=== PATIENT | male | born 1965 | race American Indian/Alaskan Native ===

== ENCOUNTER 2017-02-08 18:56 | Emergency (ER) | payer BC, OTHER ==
[2017-02-08 19:47] VITALS: BP 120/74
[2017-02-08] MEDS ORDERED: PEPCID PO ONE (20:06)
--- NOTE | 2017-02-08 20:06 | Emergency Department Report ---
Chief Complaint: Nausea/Vomiting/Diarrhea Stated Complaint: VOMITTING/DIZZINESS/SEVERAL MONTHS Time Seen by Provider: 02/08/17 20:02 - HPI History of Present Illness: Patient is a 51-year-old male who presents to ED complaining of she requested refills of the past 8 months. Patient also has a history of heart attack 2 years ago on lovastatin and another medication which he cannot recall. Patient states he's run out of those medications and would like a refill on those. As he has run out of insurance and be able to get insurance for couple weeks. Patient states he has periodic episodes of vomiting right after eating. Patient states he state times a while ago but had septic and Tums because he had a kidney stone. Patient states he has gotten the medication here before should be in his records Patient denies fevers/chills/nausea/chest pain/shortness of breath/pain or any other problems. - ROS Review of Systems: As noted in HPI - Exam Vital Signs: Vital Signs 02/08/17 19:42 Temperature 97.5 F L Pulse Rate 79 Respiratory 20 Rate Blood Pressure 120/74 O2 Sat by Pulse 97 Oximetry Physical Exam: GENERAL: Alert and oriented x3, no apparent distress, Normal Gait, atraumatic. HEAD: Head is normocephalic and a-traumatic. NECK: Supple. Non edematous, No carotid bruits. No lymphadenopathy or thyromegaly. LUNGS: Symetrical with respiration, No wheezing, no rales or crackles, CTAB. HEART: S1, S2 present, regular rate and rhythm without murmur, no rubs, no gallops. MSE screening note: Focused history and physical exam performed. Due to findings the following was ordered: ED Medical Decision Making - Medical Decision Making Patient to be seen by fast track provider for medication refill. ED Disposition for MSE Condition: Stable
--- NOTE | 2017-02-08 22:41 | Emergency Department Report ---
HPI - General Chief Complaint: Nausea/Vomiting/Diarrhea Time Seen by Provider: 02/08/17 20:02 - HPI HPI: 51-year-old male comes in for right out of his meds. Patient reports that he has a history of emesis for about 8 months. He reports he has a history of VT in the past and has been taking BC powders instead of his Plavix. He reports he's been taken at because he has no insurance to pay for his Plavix. He reports he needs refills on Plavix , Crestor and Pepcid. He does report he seems to worry a lot and thinks he has anxiety. Based on his current medication list it does appear that he's been on Xanax 2 mg at night. Discussed with patient that this is a medication that will need to be prescribed by primary care provider patient understands. ED Past Medical Hx - Past Medical History Previous Medical History?: Yes Hx Hypertension: No Hx Heart Attack/AMI: Yes Hx Congestive Heart Failure: No Hx Diabetes: No Hx Deep Vein Thrombosis: No Hx Pulmonary Embolism: No Hx Liver Disease: No Hx Renal Disease: Yes (kidney stones) Hx Sickle Cell Disease: No Hx Arthritis: No Hx Seizures: No Hx Kidney Stones: No Hx Asthma: Yes (childhood) Hx COPD: No Hx Tuberculosis: No Hx Dementia: No Hx HIV: No Additional medical history: high cholesterol - Surgical History Past Surgical History?: No Hx Coronary Stent: No Hx Pacemaker: No Hx Internal Defibrillator: No - Social History Smoking Status: Current Every Day Smoker Substance Use Type: None - Medications Home Medications: Home Medications Medication Instructions Recorded Confirmed Last Taken Type ALPRAZolam [Xanax TAB] 2 mg PO HS 08/08/14 01/17/16 10/27/14 History 2mg Aspirin [Aspirin BABY CHEW TAB] 81 mg PO QDAY #30 tab.chew 10/30/14 01/17/16 Unknown Rx Nicotine [Habitrol] 7 mg TD QDAY #14 patch 10/30/14 Unknown Rx Sulfamethoxazole/Trimethoprim 1 each PO BID #10 tablet 06/02/15 01/17/16 Unknown Rx [Bactrim DS TAB] ALPRAZolam [Xanax TAB] 2 mg PO HS #12 tablet 11/30/15 Unknown Rx Clindamycin [Clindamycin CAP] 300 mg PO Q6H #40 capsule 03/08/16 Unknown Rx HYDROcodone/APAP 5-325 [[place] 1 each PO Q6HR PRN #20 tablet 01/18/16 Unknown Rx 5/325] Aspirin EC [Aspirin Enteric Coated 81 mg PO QDAY #30 tablet. 02/08/17 Unknown Rx TAB] Clopidogrel [Plavix] 75 mg PO QDAY #30 tablet 02/08/17 Unknown Rx Famotidine [Pepcid] 20 mg PO BID #60 tablet 02/08/17 Unknown Rx Promethazine [Phenergan TAB] 25 mg PO Q6HR PRN #20 tab 02/08/17 Unknown Rx Rosuvastatin (Nf) [Crestor] 20 mg PO QHS #30 tablet 02/08/17 Unknown Rx ED Review of Systems ROS: Stated complaint: VOMITTING/DIZZINESS/SEVERAL MONTHS Other details as noted in HPI Physical Exam - Physical Exam Vital Signs: Vital Signs 02/08/17 19:42 Temperature 97.5 F L Pulse Rate 79 Respiratory 20 Rate Blood Pressure 120/74 O2 Sat by Pulse 97 Oximetry Physical Exam: GENERAL: Alert and oriented x3, no apparent distress, Normal Gait, atraumatic. HEAD: Head is normocephalic and a-traumatic. EYES: Extra ocular muscles are intact. Pupils are equal, round, and reactive to light and accommodation. MOUTH:Mouth is well hydrated and without lesions. Tonsils nonerythematous or swollen, Uvula midline, Tongue not elevated. Mucous membranes are moist. Posterior pharynx clear, no exudate or lesions. Patent airways. NECK: Supple. Non edematous, No carotid bruits. No lymphadenopathy or thyromegaly. LUNGS: Symetrical with respiration, No wheezing, no rales or crackles, CTAB. HEART: S1, S2 present, regular rate and rhythm without murmur, no rubs, no gallops. ABDOMEN: No organomegaly was noted,Positive bowel sounds, soft, and non- distended. . Nontender to palpation on all Quadrants, NO CVA tenderness. EXTREMITIES/MUSCULOSKELETAL: No cyanosis, clubbing, rash, lesions or edema. Full ROM bilaterally. UE/LE Pulses 2+ bilaterally. LE and UE 5+ strength bilaterally NEUROLOGIC: No focal Deficit, Cranial nerves II through XII are grossly intact. No loss of sensation, No facial droop, PSYCHIATRIC: Mood is congruent with affect, denies suicidal or homicidal ideations. SKIN: Warm and dry, No lesions, No ulceration or induration present ED Course Vital Signs 02/08/17 19:42 Temperature 97.5 F L Pulse Rate 79 Respiratory 20 Rate Blood Pressure 120/74 O2 Sat by Pulse 97 Oximetry ED Medical Decision Making - Medical Decision Making Patient's been evaluated by this provider in fast track. Treatment based on history. Patient has normal vital signs of a heart rate of 79 blood pressure 120/74 and saturations of 97. Discussed the patient that we will refill his medications for him and refer him to a primary care provider. As well as refer him to a GI specialist for his ongoing emesis and nausea since then gone on for 8 months. Patient verbalized understanding. Critical care attestation.: If time is entered above; I have spent that time in minutes in the direct care of this critically ill patient, excluding procedure time. ED Disposition Clinical Impression: Gastroenteritis Nausea & vomiting Qualifiers: Vomiting type: unspecified Disposition: DISCHARGED TO HOME OR SELFCARE Is pt being admited?: No Does the pt Need Aspirin: No Condition: Stable Instructions: Gastroenteritis (ED) Prescriptions: Rosuvastatin (Nf) [Crestor] 20 mg PO QHS #30 tablet Aspirin EC [Aspirin Enteric Coated TAB] 81 mg PO QDAY #30 tablet. Clopidogrel [Plavix] 75 mg PO QDAY #30 tablet Famotidine [Pepcid] 20 mg PO BID #60 tablet Promethazine [Phenergan TAB] 25 mg PO Q6HR PRN #20 tab PRN Reason: Nausea Referrals: [facility] [Provider Group] - 3-5 Days [facility] [Provider Group] - 3-5 Days [facility] [Provider Group] - 3-5 Days Forms: Work/School Release Form(ED), Accompanied Note
== END 2017-02-08 23:12 | disposition home or self-care (01) ==
LOC: ED 18:56
DX: K52.9 Noninfective gastroenteritis and colitis, unspecified (principal); R11.2 Nausea with vomiting, unspecified; I25.2 Old myocardial infarction; J45.909 Unspecified asthma, uncomplicated; E78.00 Pure hypercholesterolemia, unspecified; F17.200 Nicotine dependence, unspecified, uncomplicated; Z79.82 Long term (current) use of aspirin
CPT/HCPCS: 99282

== ENCOUNTER 2017-09-23 06:58 | Emergency (ER) | payer SELFPAY ==
[2017-09-23 07:36] VITALS: BP 127/86
[2017-09-23] MEDS ORDERED: MOTRIN PO ONE (08:47)
--- NOTE | 2017-09-23 09:03 | Emergency Department Report ---
ED Upper Extremity Inj HPI - General Chief Complaint: Extremity Injury, Upper Stated Complaint: LT ARM PAIN Time Seen by Provider: 09/23/17 08:05 Source: patient Mode of arrival: Ambulatory Limitations: No Limitations - History of Present Illness Initial Comments: This is a 52-year-old male nontoxic, well nourished in appearance, no acute signs of distress presents to the ED c/o of left elbow pain x3 months. Patient stated he was working 3 months ago and developed a sharp pain in the left elbow region and was seen here in the ED and was admitted to for r/o NC. Patient stated all results were negative and he was d/c. Patient denies any new trauma to the region. PAtient stated he never received an xray to the region and stated he wants an xray. Patient denies any trauma to the region. Denies any chest pain, joing swelling, joint redness, shortness of breathe, fever, chills, headach,e n/v, numbness, tingling, facial dropping. Patient denies any allergies. PMH includes asthma, NC and renal disease. MD Complaint: Injury to:: left, elbow -: Gradual, month(s) (3) Other Extremity Injury: Elbow: Left Other Injuries: none Place: work Severity scale (0 -10): 7 Improves With: none Worsens With: none Associated Symptoms: denies other symptoms. denies: weakness, numbness, neck pain, suspects foreign body, nausea/vomiting, heard/felt popping sensat - Related Data Home Medications Medication Instructions Recorded Confirmed Last Taken ALPRAZolam [Xanax TAB] 2 mg PO TID 08/08/14 03/09/17 03/09/17 Famotidine [Pepcid] 20 mg PO BID 03/09/17 03/09/17 Unknown Promethazine [Phenergan TAB] 25 mg PO Q6H PRN 03/09/17 03/09/17 03/09/17 Rosuvastatin (Nf) [Crestor] 20 mg PO DAILY 03/09/17 03/09/17 03/08/17 Previous Rx's Medication Instructions Recorded Last Taken Type Aspirin EC [Aspirin Enteric Coated 81 mg PO QDAY #30 tablet. 02/08/17 Unknown Rx TAB] Clopidogrel [Plavix] 75 mg PO QDAY #30 tablet 02/08/17 03/09/17 Rx Ibuprofen [Motrin] 600 mg PO Q8H PRN #30 tablet 09/23/17 Unknown Rx Allergies Allergy/AdvReac Type Severity Reaction Status Date / Time No Known Allergies Allergy Verified 01/17/16 20:43 ED Review of Systems ROS: Stated complaint: LT ARM PAIN Other details as noted in HPI Constitutional: denies: chills, fever Eyes: denies: eye pain, eye discharge, vision change ENT: denies: ear pain, throat pain Respiratory: denies: cough, shortness of breath, wheezing Cardiovascular: denies: chest pain, palpitations Endocrine: no symptoms reported Gastrointestinal: denies: abdominal pain, nausea, diarrhea Genitourinary: denies: urgency, dysuria Musculoskeletal: denies: back pain, joint swelling, arthralgia Skin: denies: rash, lesions Neurological: denies: headache, weakness, paresthesias Psychiatric: denies: anxiety, depression Hematological/Lymphatic: denies: easy bleeding, easy bruising ED Past Medical Hx - Past Medical History Previous Medical History?: Yes Hx Hypertension: No Hx Heart Attack/AMI: Yes Hx Congestive Heart Failure: No Hx Diabetes: No Hx Deep Vein Thrombosis: No Hx Pulmonary Embolism: No Hx Liver Disease: No Hx Renal Disease: Yes (kidney stones) Hx Sickle Cell Disease: No Hx Arthritis: No Hx Seizures: No Hx Kidney Stones: No Hx Asthma: Yes (childhood) Hx COPD: No Hx Tuberculosis: No Hx Dementia: No Hx HIV: No Additional medical history: high cholesterol - Surgical History Past Surgical History?: No Hx Coronary Stent: No Hx Pacemaker: No Hx Internal Defibrillator: No - Social History Smoking Status: Current Every Day Smoker Substance Use Type: Prescribed - Medications Home Medications: Home Medications Medication Instructions Recorded Confirmed Last Taken Type ALPRAZolam [Xanax TAB] 2 mg PO TID 08/08/14 03/09/17 03/09/17 History Aspirin EC [Aspirin Enteric Coated 81 mg PO QDAY #30 tablet. 02/08/17 Unknown Rx TAB] Clopidogrel [Plavix] 75 mg PO QDAY #30 tablet 02/08/17 03/09/17 03/09/17 Rx Famotidine [Pepcid] 20 mg PO BID 03/09/17 03/09/17 Unknown History Promethazine [Phenergan TAB] 25 mg PO Q6H PRN 03/09/17 03/09/17 03/09/17 History Rosuvastatin (Nf) [Crestor] 20 mg PO DAILY 03/09/17 03/09/17 03/08/17 History Ibuprofen [Motrin] 600 mg PO Q8H PRN #30 tablet 09/23/17 Unknown Rx ED Physical Exam - General Limitations: No Limitations General appearance: alert, in no apparent distress - Head Head exam: Present: atraumatic, normocephalic, normal inspection - Eye Eye exam: Present: normal appearance, PERRL, EOMI. Absent: scleral icterus, conjunctival injection, nystagmus, periorbital swelling, periorbital tenderness Pupils: Present: normal accommodation - ENT ENT exam: Present: normal exam, normal orophraynx, mucous membranes moist, TM's normal bilaterally, normal external ear exam - Neck Neck exam: Present: normal inspection, full ROM. Absent: tenderness, meningismus, lymphadenopathy, thyromegaly - Respiratory Respiratory exam: Present: normal lung sounds bilaterally. Absent: respiratory distress, wheezes, rales, rhonchi, stridor, chest wall tenderness, accessory muscle use, decreased breath sounds, prolonged expiratory - Cardiovascular Cardiovascular Exam: Present: regular rate, normal rhythm, normal heart sounds. Absent: bradycardia, tachycardia, irregular rhythm, systolic murmur, diastolic murmur, rubs, gallop - GI/Abdominal GI/Abdominal exam: Present: soft, normal bowel sounds. Absent: distended, tenderness, guarding, rebound, rigid, diminished bowel sounds - Rectal Rectal exam: Present: deferred - Extremities Exam Extremities exam: Present: normal inspection, full ROM, tenderness, normal capillary refill. Absent: pedal edema, joint swelling, calf tenderness - Expanded Upper Extremity Exam Left General: Present: normal inspection Shoulder Exam: Present: normal inspection, full ROM. Absent: tenderness, swelling, abrasion, laceration, ecchymosis, deformity, crepidus, dislocation, erythema, tenderness over AC joint Upper Arm exam: Present: normal inspection, full ROM. Absent: tenderness, swelling, abrasion, laceration, ecchymosis, deformity, crepidus, dislocation, erythema Elbow exam: Present: normal inspection, full ROM, tenderness. Absent: swelling , abrasion, laceration, ecchymosis, deformity, crepidus, dislocation, erythema, effusion, pain w/ pronation/supination, tenderness over radial head Forearm Wrist exam: Present: normal inspection, full ROM. Absent: tenderness, swelling, abrasion, laceration, ecchymosis, deformity, crepidus, dislocation, erythema, tenderness over anatomical snuff box, pain with axial thumb loading Hand Wrist exam: Present: normal inspection, full ROM. Absent: tenderness, swelling, abrasion, laceration, ecchymosis, deformity, crepidus, dislocation, erythema, amputation, nail avulsion, subungual hematoma Neuro motor exam: Present: wrist extension intact, thumb opposition intact, thumb IP flexion intact, thumb adduction intact, fingers 2-5 abduction intact Neurosensory exam: Present: 2-point discrimination, radial nerve intact, ulnar nerve intact, median nerve intact Vascular: Present: vascular compromise, normal capillary refill, radial pulse, brachial pulse, ulnar pulse - Back Exam Back exam: Present: normal inspection, full ROM. Absent: tenderness, CVA tenderness (R), CVA tenderness (L), muscle spasm, paraspinal tenderness, vertebral tenderness, rash noted - Neurological Exam Neurological exam: Present: alert, oriented X3, CN II-XII intact, normal gait, reflexes normal - Psychiatric Psychiatric exam: Present: normal affect, normal mood - Skin Skin exam: Present: warm, dry, intact, normal color. Absent: rash ED Course Vital Signs 09/23/17 07:31 Temperature 97.7 F Pulse Rate 78 Respiratory 18 Rate Blood Pressure 127/86 O2 Sat by Pulse 95 Oximetry - Reevaluation(s) Reevaluation #1: 09/23/17 09:07 Patient is speaking in full sentences with no signs of distress noted. ED Medical Decision Making - Medical Decision Making 52-year-old male that presents with left elbow paiin. Patient was examined by me and patient is stable. There is no joint redness or joint swelling. No signs of cellulitis or joint effusion. Xray has been obtained and dictated by radiologist with normal exam. Patient was notified of xray results with no further questions noted by the patient. Patient received motrin in the ED which patient stated symptoms are impvoring and resolving. Patient was instructed to follow-up with orthopedic doctor in 24 hours or if symptoms worsen and continue , return to the emergency room as soon as possible. At time time of discharge, the patient does not seem toxic or ill in appearance. No acute signs of distress noted. Patient agrees to discharge treatment plan of care. No further questions noted by the patient Critical care attestation.: If time is entered above; I have spent that time in minutes in the direct care of this critically ill patient, excluding procedure time. ED Disposition Clinical Impression: Left elbow pain Disposition: DC- TO HOME OR SELFCARE Is pt being admited?: No Does the pt Need Aspirin: No Condition: Stable Additional Instructions: follow-up with orthopedic doctor in 24 hours or if symptoms worsen and continue , return to the emergency room as soon as possible. Prescriptions: Ibuprofen [Motrin] 600 mg PO Q8H PRN #30 tablet PRN Reason: Pain Referrals: PRIMARY CAREMD [Primary Care Provider] - 3-5 Days MARLINE MONCADA MD [Staff Physician] - 3-5 Days JAN DAVILA MD [Staff Physician] - 3-5 Days [facility] [Outside] - 3-5 Days [facility] [Outside] - 3-5 Days Forms: Work/School Release Form(ED)
--- NOTE | 2017-09-23 09:48 | XRay Report ---
X-RAY LEFT ELBOW THREE VIEWS: 09/23/17 06:58:00 CLINICAL: Pain. FINDINGS: No fracture or dislocation. Mild humeroulnar joint arthritis. Normal soft tissues. No joint effusion. IMPRESSION: Mild arthritis.
== END 2017-09-23 10:09 | disposition home or self-care (01) ==
LOC: ED 06:58
DX: M25.522 Pain in left elbow (principal); I25.2 Old myocardial infarction; E78.00 Pure hypercholesterolemia, unspecified; F17.210 Nicotine dependence, cigarettes, uncomplicated; Z79.82 Long term (current) use of aspirin
CPT/HCPCS: 99283

== ENCOUNTER 2018-03-04 22:15 | Emergency (ER) | payer BC, OTHER ==
[2018-03-04] MEDS ORDERED: ANTIBIOTIC OINT TP SCH (23:45)
[2018-03-04] MEDS ORDERED: NACL 0.9% 500 ML 500 ML IV ONE (23:49)
[2018-03-04] MEDS ORDERED: XYLOCAINE CARDIAC IV ONE (23:50)
[2018-03-04] MEDS ORDERED: XYLOCAINE 2% INFILTRATI ONE (23:50)
[2018-03-04] MEDS ORDERED: BOOSTRIX IM ONE (23:50)
[2018-03-04] MEDS ORDERED: NACL 0.9% IR ONE (23:50)
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
[2018-03-05 00:43] LABS: BUN/Creatinine Ratio 7; Blood Urea Nitrogen 6 mg/dL (9-20); Calcium 8.7 mg/dL (8.4-10.2); Hemolysis Index 36
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
[2018-03-05] MEDS ORDERED: NACL ONE (01:11)
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
--- NOTE | 2018-03-05 03:35 | Emergency Department Report ---
Blank Doc - Documentation Documentation: Procedure note: Multiple lacerations and abrasions - All wounds thoroughly irrigated and cleaned with saline/iodine mixture or chlorhexidine sponges - Multiple small fragments of glass removed from several superficial wounds, largest occiptial scalp ( see below) 1) stellate left middle finger at PIP joint: 4 nylon 5-0 sutures 2) left ring finger PIP joint: abrasion: dermabond placed here 3) jagged laceration nape of the neck: 8 proline 3-0 sutures 4) right post auricular region: 4 alex placed 5) posterior scalp/occipital region laceration with associated glass particle: 2 adjacent alex placed. One small triangular fragment of glass approximately 1 cm in size removed from this area intact before closure Approximately 1 hour spent addressing pts wounds.
[2018-03-05 03:40] VITALS: BP 144/86
== END 2018-03-05 03:50 | disposition home or self-care (01) ==
LOC: ED 22:15
DX: S11.91XA Laceration without foreign body of unspecified part of neck, initial encounter (principal); S61.412A Laceration without foreign body of left hand, initial encounter; S01.02XA Laceration with foreign body of scalp, initial encounter; S01.311A Laceration without foreign body of right ear, initial encounter; I25.2 Old myocardial infarction; E78.00 Pure hypercholesterolemia, unspecified; Z79.82 Long term (current) use of aspirin; V49.9XXA Car occupant (driver) (passenger) injured in unspecified traffic accident, initial encounter; Y93.89 Activity, other specified; Y92.89 Other specified places as the place of occurrence of the external cause; Y99.8 Other external cause status
CPT/HCPCS: 12002; 12011; 12031; 36415; 70450; 70498; 71045; 72170; 73130; 80048; 82550; 90471; 90715; 99284; J2001; J7040; Q9967

== ENCOUNTER 2018-03-09 19:04 | Emergency (ER) | payer OTHER ==
[2018-03-09 19:28] VITALS: BP 126/90
--- NOTE | 2018-03-09 22:08 | Emergency Department Report ---
Suture/Staple Removal - [facility] Chief Complaint: Laceration/Recheck/Suture Stated Complaint: STITCH/STAPLE REMOVAL Time Seen by Provider: 03/09/18 21:56 When Sutures or Alex Placed: 5-7 Days Ago Wound Location: occipital, scalp, left middle finger PIP joint, ED Review of Systems ROS: Stated complaint: STITCH/STAPLE REMOVAL Other details as noted in HPI Constitutional: denies: chills, fever Eyes: denies: eye pain, eye discharge, vision change ENT: denies: ear pain, throat pain Respiratory: denies: cough, shortness of breath, wheezing Cardiovascular: denies: chest pain, palpitations Endocrine: no symptoms reported Gastrointestinal: denies: abdominal pain, nausea, diarrhea Genitourinary: denies: urgency, dysuria Musculoskeletal: denies: back pain, joint swelling, arthralgia Skin: denies: rash, lesions Neurological: denies: headache, weakness, paresthesias Psychiatric: denies: anxiety, depression Hematological/Lymphatic: denies: easy bleeding, easy bruising ED Past Medical Hx - Past Medical History Previous Medical History?: Yes Hx Hypertension: No Hx Heart Attack/AMI: Yes Hx Congestive Heart Failure: No Hx Diabetes: No Hx Deep Vein Thrombosis: No Hx Pulmonary Embolism: No Hx Liver Disease: No Hx Renal Disease: Yes (kidney stones) Hx Sickle Cell Disease: No Hx Arthritis: No Hx Seizures: No Hx Kidney Stones: No Hx Asthma: Yes (childhood) Hx COPD: No Hx Tuberculosis: No Hx Dementia: No Hx HIV: No Additional medical history: high cholesterol - Surgical History Hx Coronary Stent: No Hx Pacemaker: No Hx Internal Defibrillator: No - Social History Smoking Status: Current Every Day Smoker - Medications Home Medications: Home Medications Medication Instructions Recorded Confirmed Last Taken Type ALPRAZolam [Xanax TAB] 2 mg PO TID 08/08/14 03/09/17 03/09/17 History Aspirin EC [Aspirin Enteric Coated 81 mg PO QDAY #30 tablet. 02/08/17 Unknown Rx TAB] Clopidogrel [Plavix] 75 mg PO QDAY #30 tablet 02/08/17 03/09/17 03/09/17 Rx Famotidine [Pepcid] 20 mg PO BID 03/09/17 03/09/17 Unknown History Promethazine [Phenergan TAB] 25 mg PO Q6H PRN 03/09/17 03/09/17 03/09/17 History Rosuvastatin (Nf) [Crestor] 20 mg PO DAILY 03/09/17 03/09/17 03/08/17 History Ibuprofen [Motrin] 600 mg PO Q8H PRN #30 tablet 09/23/17 Unknown Rx Acetaminophen [Tylenol Arthritis] 650 mg PO Q6HR PRN #30 tablet.er 03/05/18 Unknown Rx Bacitracin/Polymyxin B Sulfate 28 gm TP BID #1 oint...g. 03/05/18 Unknown Rx [[facility] Poly Bacitracin Ointmnt] Cephalexin [Keflex] 500 mg PO Q12HR #14 cap 03/05/18 Unknown Rx Ibuprofen [Motrin] 600 mg PO Q8H PRN #30 tablet 03/05/18 Unknown Rx Suture Removal Exam - Exam General: Vital signs noted. No distress. Alert and acting appropriately. Wound: Yes Tenderness (occipital suture tenderness), No Drainage, No Pus, No Wound Dehiscence Other Systems: All other systems reviewed and are unremarkable. ED Course Vital Signs 03/09/18 03/09/18 19:22 19:35 Temperature 98.2 F 98.2 F Pulse Rate 95 H 86 Respiratory 18 18 Rate Blood Pressure 126/90 126/90 O2 Sat by Pulse 97 98 Oximetry ED Recheck MDM - Differential Diagnosis Wound Recheck, Suture/Staple Removal - Medical Decision Making Patient's been evaluated by this provider in fast track. Discussed with patient that the sutures in the occipital area and left middle finger are not healed well enough to have sutures removed at this time. Patient is informed to return back in 5-7 days for those sutures to be removed. We were able to move the alex from his scalp. Patient is stable to be discharged home. Patient verbalized understanding Critical care attestation.: If time is entered above; I have spent that time in minutes in the direct care of this critically ill patient, excluding procedure time. ED Disposition Clinical Impression: Encounter for removal of sutures Disposition: DC-01 TO HOME OR SELFCARE Is pt being admited?: No Does the pt Need Aspirin: No Condition: Stable Additional Instructions: Please return to the emergency room in 5-7 days to have the remaining sutures removed. Please keep the area clean and dry any signs of infection such as purulent discharge increased redness increased pain return sooner. Referrals: PRIMARY CARE, [Primary Care Provider] - 3-5 Days
== END 2018-03-09 22:10 | disposition home or self-care (01) ==
LOC: ED 19:04
DX: S61.213D Laceration without foreign body of left middle finger without damage to nail, subsequent encounter (principal); J45.909 Unspecified asthma, uncomplicated; E78.00 Pure hypercholesterolemia, unspecified; F17.200 Nicotine dependence, unspecified, uncomplicated; Z79.82 Long term (current) use of aspirin; Z87.442 Personal history of urinary calculi; W26.8XXD Contact with other sharp object(s), not elsewhere classified, subsequent encounter
CPT/HCPCS: 99282

== ENCOUNTER 2018-03-16 05:15 | Emergency (ER) | payer SELFPAY ==
[2018-03-16 05:20] VITALS: BP 113/84
--- NOTE | 2018-03-16 05:53 | Emergency Department Report ---
Suture/Staple Removal - [facility] Chief Complaint: Laceration/Recheck/Suture Stated Complaint: WOUND CHECK Time Seen by Provider: 03/16/18 05:51 When Sutures or Lilliana Placed: 11-14 Days Ago Wound Location: back of neck ED Review of Systems ROS: Stated complaint: WOUND CHECK Other details as noted in HPI Constitutional: denies: chills, fever Eyes: denies: eye pain, eye discharge, vision change ENT: denies: ear pain, throat pain Respiratory: denies: cough, shortness of breath, wheezing Cardiovascular: denies: chest pain, palpitations Endocrine: no symptoms reported Gastrointestinal: denies: abdominal pain, nausea, diarrhea Genitourinary: denies: urgency, dysuria Musculoskeletal: denies: back pain, joint swelling, arthralgia Skin: denies: rash, lesions Neurological: denies: headache, weakness, paresthesias Psychiatric: denies: anxiety, depression Hematological/Lymphatic: denies: easy bleeding, easy bruising ED Past Medical Hx - Past Medical History Previous Medical History?: Yes Hx Hypertension: No Hx Heart Attack/AMI: Yes Hx Congestive Heart Failure: No Hx Diabetes: No Hx Deep Vein Thrombosis: No Hx Pulmonary Embolism: No Hx Liver Disease: No Hx Renal Disease: Yes (kidney stones) Hx Sickle Cell Disease: No Hx Arthritis: No Hx Seizures: No Hx Kidney Stones: No Hx Asthma: Yes (childhood) Hx COPD: No Hx Tuberculosis: No Hx Dementia: No Hx HIV: No Additional medical history: high cholesterol - Surgical History Past Surgical History?: No Hx Coronary Stent: No Hx Pacemaker: No Hx Internal Defibrillator: No - Social History Smoking Status: Current Every Day Smoker Substance Use Type: None - Medications Home Medications: Home Medications Medication Instructions Recorded Confirmed Last Taken Type ALPRAZolam [Xanax TAB] 2 mg PO TID 08/08/14 03/09/17 03/09/17 History Aspirin EC [Aspirin Enteric Coated 81 mg PO QDAY #30 tablet. 02/08/17 Unknown Rx TAB] Clopidogrel [Plavix] 75 mg PO QDAY #30 tablet 02/08/17 03/09/17 03/09/17 Rx Famotidine [Pepcid] 20 mg PO BID 03/09/17 03/09/17 Unknown History Promethazine [Phenergan TAB] 25 mg PO Q6H PRN 03/09/17 03/09/17 03/09/17 History Rosuvastatin (Nf) [Crestor] 20 mg PO DAILY 03/09/17 03/09/17 03/08/17 History Ibuprofen [Motrin] 600 mg PO Q8H PRN #30 tablet 09/23/17 Unknown Rx Acetaminophen [Tylenol Arthritis] 650 mg PO Q6HR PRN #30 tablet.er 03/05/18 Unknown Rx Bacitracin/Polymyxin B Sulfate 28 gm TP BID #1 oint...g. 03/05/18 Unknown Rx [[facility] Poly Bacitracin Ointmnt] Cephalexin [Keflex] 500 mg PO Q12HR #14 cap 03/05/18 Unknown Rx Ibuprofen [Motrin] 600 mg PO Q8H PRN #30 tablet 03/05/18 Unknown Rx Suture Removal Exam - Exam General: Vital signs noted. No distress. Alert and acting appropriately. Wound: No Pathologic Erythema, No Tenderness, No Drainage, No Pus, No Wound Dehiscence Other Systems: All other systems reviewed and are unremarkable. ED Course Vital Signs 03/16/18 05:15 Pulse Rate 99 H Respiratory 16 Rate Blood Pressure 113/84 O2 Sat by Pulse 95 Oximetry ED Recheck MDM - Differential Diagnosis Wound Recheck, Suture/Staple Removal - Medical Decision Making Patient's been evaluated by this provider fast track. I removed 9 sutures from the back of patient's neck. Discussed the patient keep the area clean and dry. Patient verbalized understanding. Critical care attestation.: If time is entered above; I have spent that time in minutes in the direct care of this critically ill patient, excluding procedure time. ED Disposition Clinical Impression: Encounter for removal of sutures Disposition: DC-01 TO HOME OR SELFCARE Is pt being admited?: No Does the pt Need Aspirin: No Condition: Stable Instructions: Suture Removal (ED) Additional Instructions: Keep the area clean and dry. Referrals: PRIMARY CARE, [Primary Care Provider] - 3-5 Days [facility] [Provider Group] - 3-5 Days
== END 2018-03-16 06:20 | disposition home or self-care (01) ==
LOC: ED 05:15
DX: Z48.02 Encounter for removal of sutures (principal)

== ENCOUNTER 2019-12-31 14:52 | Emergency (ER) | payer SELFPAY ==
--- NOTE | 2019-12-31 16:20 | Emergency Department Report ---
{null, Blank Doc - Documentation Documentation: 54-year-old male that presents with abdominal pain with n/v and seen blood in the vomit. This initial assessment/diagnostic orders/clinical plan/treatment(s) is/are subject to change based on patient's health status, clinical progression and re- assessment by fellow clinical providers in the ED. Further treatment and workup at subsequent clinical providers discretion. Patient/guardians urged not to elope from the ED as their condition may be serious if not clinically assessed and managed. Initial orders include: 1- Patient sent to MAIN ED for further evaluation and treatment 2- labs 3- UA }
[2019-12-31 17:51] LABS: Basophils # (Auto) 0.1 K/mm3 (0.0-0.1); Eosinophils # (Auto) 0.5 K/mm3 (0.0-0.4); Eosinophils % (Auto) 6.4 % (0.0-4.3); Hematocrit 45.6 % (35.5-45.6); Hemoglobin 15.3 gm/dl (11.8-15.2); Lymphocytes % (Auto) 27.3 % (13.4-35.0); Mean Corpuscular HGB Conc 34 % (32-34); Mean Corpuscular Volume 104 fl (84-94); Monocytes # (Auto) 0.5 K/mm3 (0.0-0.8); Red Blood Count 4.38 M/mm3 (3.65-5.03); Red Cell Distribution Width 14.3 % (13.2-15.2)
[2019-12-31 18:23] LABS: Alanine Aminotransferase 10 units/L (7-56); Albumin 4.3 g/dL (3.9-5); BUN/Creatinine Ratio 10; Blood Urea Nitrogen 9 mg/dL (9-20); Calcium 9.6 mg/dL (8.4-10.2); Hemolysis Index 17
[2019-12-31 18:31] LABS: Mean Platelet Volume 9.8 fl (6-12); Platelet Count 189 K/mm3 (140-440)
[2019-12-31 18:55] LABS: Bilirubin,Urine NEG (Negative); Blood,Urine SM (Negative); Color,Urine Straw (Yellow); Protein,Urine <15 mg/dL mg/dL (Negative); Urobilinogen,Urine < 2.0 mg/dL (<2.0)
--- NOTE | 2019-12-31 21:14 | Emergency Department Report ---
{null, ED GI Bleed HPI - General Chief complaint: Abdominal Pain Stated complaint: VOMITING BLOOD/FAINTING Time Seen by Provider: 12/31/19 16:19 Source: patient Mode of arrival: Ambulatory Limitations: No Limitations - History of Present Illness Initial comments: Patient is 54 years old male with history of coronary artery disease and chronic gastritis. Patient presented to the ER stating that 2 days ago she had 1 episode of vomiting blood. Patient stated that he did not have any vomiting since then but he is worried and wants to find out what is going on. Patient stated that he had an endoscopy 5 years ago and he was told that it was normal and he was asked to take Tums. Patient is taking Goody powders twice a day for generalized body pain. Patient denied any melena or hematochezia. MD complaint: gross hematemesis -: days(s) (2) Radiation: none Quality: painless Context: history of GI bleed Associated Symptoms: denies other symptoms - Related Data Home Medications Medication Instructions Recorded Confirmed Last Taken ALPRAZolam [Xanax TAB] 2 mg PO TID 08/08/14 03/09/17 03/09/17 2 mg Famotidine [Pepcid] 20 mg PO BID 03/09/17 03/09/17 Unknown Promethazine [Phenergan] 25 mg PO Q6H PRN 03/09/17 03/09/17 03/09/17 Rosuvastatin (Nf) [Crestor] 20 mg PO DAILY 03/09/17 03/09/17 03/08/17 Previous Rx's Medication Instructions Recorded Last Taken Type Aspirin EC [Halfprin EC] 81 mg PO QDAY #30 tablet. 02/08/17 Unknown Rx Clopidogrel [Plavix] 75 mg PO QDAY #30 tablet 02/08/17 03/09/17 Rx Ibuprofen [Motrin] 600 mg PO Q8H PRN #30 tablet 09/23/17 Unknown Rx Acetaminophen [Tylenol Arthritis] 650 mg PO Q6HR PRN #30 tablet.er 03/05/18 Unknown Rx Bacitracin/Polymyxin B Sulfate 28 gm TP BID #1 oint...g. 03/05/18 Unknown Rx [[facility] Bacitracin Ointmnt] Ibuprofen [Motrin] 600 mg PO Q8H PRN #30 tablet 03/05/18 Unknown Rx cephALEXin [Keflex] 500 mg PO Q12HR #14 cap 03/05/18 Unknown Rx Allergies Allergy/AdvReac Type Severity Reaction Status Date / Time No Known Allergies Allergy Verified 01/17/16 20:43 ED Review of Systems ROS: Stated complaint: VOMITING BLOOD/FAINTING Other details as noted in HPI Comment: All other systems reviewed and negative Constitutional: denies: chills, fever Respiratory: denies: cough, shortness of breath, SOB with exertion, wheezing Cardiovascular: denies: chest pain Gastrointestinal: hematemesis. denies: abdominal pain, nausea, vomiting, constipation, melena, hematochezia Genitourinary: denies: urgency, dysuria Musculoskeletal: denies: back pain Neurological: denies: headache, weakness, numbness, paresthesias, confusion ED Past Medical Hx - Past Medical History Previous Medical History?: Yes Hx Hypertension: No Hx Heart Attack/AMI: Yes Hx Congestive Heart Failure: No Hx Diabetes: No Hx Deep Vein Thrombosis: No Hx Pulmonary Embolism: No Hx Liver Disease: No Hx Renal Disease: Yes (kidney stones) Hx Sickle Cell Disease: No Hx Arthritis: No Hx Seizures: No Hx Kidney Stones: No Hx Asthma: Yes (childhood) Hx COPD: No Hx Tuberculosis: No Hx Dementia: No Hx HIV: No Additional medical history: high cholesterol - Surgical History Past Surgical History?: No Hx Coronary Stent: No Hx Pacemaker: No Hx Internal Defibrillator: No - Social History Smoking Status: Current Every Day Smoker Substance Use Type: None - Medications Home Medications: Home Medications Medication Instructions Recorded Confirmed Last Taken Type ALPRAZolam [Xanax TAB] 2 mg PO TID 08/08/14 03/09/17 03/09/17 History 2 mg Aspirin EC [Halfprin EC] 81 mg PO QDAY #30 tablet. 02/08/17 03/09/17 Unknown Rx Clopidogrel [Plavix] 75 mg PO QDAY #30 tablet 02/08/17 03/09/17 03/09/17 Rx Famotidine [Pepcid] 20 mg PO BID 03/09/17 03/09/17 Unknown History Promethazine [Phenergan] 25 mg PO Q6H PRN 03/09/17 03/09/17 03/09/17 History Rosuvastatin (Nf) [Crestor] 20 mg PO DAILY 03/09/17 03/09/1717 History Ibuprofen [Motrin] 600 mg PO Q8H PRN #30 tablet 09/23/17 Unknown Rx Acetaminophen [Tylenol Arthritis] 650 mg PO Q6HR PRN #30 tablet.er 03/05/18 Unknown Rx Bacitracin/Polymyxin B Sulfate 28 gm TP BID #1 oint...g. 03/05/18 Unknown Rx [[facility] Bacitracin Ointmnt] Ibuprofen [Motrin] 600 mg PO Q8H PRN #30 tablet 03/05/18 Unknown Rx cephALEXin [Keflex] 500 mg PO Q12HR #14 cap 03/05/18 Unknown Rx ED Physical Exam - General Limitations: No Limitations General appearance: alert, in no apparent distress - Head Head exam: Present: atraumatic, normocephalic, normal inspection - Eye Eye exam: Present: normal appearance - ENT ENT exam: Present: normal exam, normal orophraynx, mucous membranes moist - Neck Neck exam: Present: normal inspection, full ROM. Absent: tenderness, meningismus, lymphadenopathy - Respiratory Respiratory exam: Present: normal lung sounds bilaterally - Cardiovascular Cardiovascular Exam: Present: regular rate, normal rhythm, normal heart sounds - GI/Abdominal GI/Abdominal exam: Present: soft, normal bowel sounds. Absent: distended, tenderness, guarding, rebound, rigid, organomegaly, mass, bruit, pulsatile mass, hernia - Extremities Exam Extremities exam: Present: normal inspection, full ROM, normal capillary refill - Back Exam Back exam: Present: normal inspection, full ROM. Absent: CVA tenderness (R), CVA tenderness (L) - Neurological Exam Neurological exam: Present: alert, oriented X3, CN II-XII intact, normal gait, reflexes normal. Absent: motor sensory deficit - Psychiatric Psychiatric exam: Present: normal mood - Skin Skin exam: Present: warm, intact, normal color ED Course Vital Signs 12/31/19 16:19 Temperature 98.1 F Pulse Rate 74 Respiratory 20 Rate Blood Pressure 136/88 O2 Sat by Pulse 98 Oximetry ED Medical Decision Making - Lab Data Result diagrams: 12/31/19 16:23 12/31/19 16:23 - Medical Decision Making Patient is 54 years old male with history of coronary artery disease and chronic gastritis. Patient presented to the ER stating that 2 days ago she had 1 episode of vomiting blood. Patient stated that he did not have any vomiting since then but he is worried and wants to find out what is going on. Patient stated that he had an endoscopy 5 years ago and he was told that it was normal and he was asked to take Tums. Patient is taking Goody powders twice a day for generalized body pain. Patient denied any melena or hematochezia. Labs reviewed and is unremarkable including a hemoglobin of 15. Last hematemesis was 2 days ago. Patient is medically stable for discharge. Patient advised to follow-up with [facility] in the next 2 to 3 days and advised to return to the ER if he develop any new vomiting. Patient also given prescription for Nexium and sucralfate. Critical care attestation.: If time is entered above; I have spent that time in minutes in the direct care of this critically ill patient, excluding procedure time. ED Disposition Clinical Impression: GI bleed Disposition: DC-01 TO HOME OR SELFCARE Is pt being admited?: No Condition: Stable Instructions: Gastrointestinal Bleeding (ED) Referrals: [facility]IMARY [facility] [Primary Care Provider] - 3-5 Days [facility] [Provider Group] - 3-5 Days }
[2019-12-31 21:27] VITALS: BP 119/69
== END 2019-12-31 21:30 | disposition home or self-care (01) ==
LOC: ED 14:52
DX: K92.2 Gastrointestinal hemorrhage, unspecified (principal); E78.00 Pure hypercholesterolemia, unspecified; F17.200 Nicotine dependence, unspecified, uncomplicated; J45.909 Unspecified asthma, uncomplicated; I25.2 Old myocardial infarction; Z79.899 Other long term (current) drug therapy
CPT/HCPCS: 36415; 80053; 81001; 83690; 85025

== ENCOUNTER 2021-07-14 17:21 | Emergency (ER) | payer SELFPAY ==
[2021-07-14 17:33] VITALS: BP 133/90
== END 2021-07-14 17:35 | disposition left against medical advice (07) ==
LOC: ED 17:21
DX: R10.9 Unspecified abdominal pain (principal); Z53.21 Procedure and treatment not carried out due to patient leaving prior to being seen by health care provider